=== PATIENT | female | born 1975 | race American Indian/Alaskan Native ===

== ENCOUNTER 2017-09-25 01:28 | Emergency (ER) | payer MEDICARE ==
[2017-09-25] MEDS ORDERED: DILAUDID IV ONE ×2 (02:48→04:46)
--- NOTE | 2017-09-25 02:50 | Emergency Department Report ---
HPI - General Chief Complaint: Fall Time Seen by Provider: 09/25/17 02:36 - HPI HPI: 41-year-old female presents to the emergency department via EMS with complaint of right knee pain after she accidentally slipped in the bathroom and fell onto that right knee. The patient had a total knee replacement done last week by Dr. Liu at [facility]. This is her third surgery done to that affected right knee. She has pain to the knee, some swelling and she says it feels warm. She did not take anything for her symptoms prior to presentation. She denies any other significant past medical history. Her primary care physician is a Dr. Mendenhall. ED Past Medical Hx - Past Medical History Previous Medical History?: No - Surgical History Hx Appendectomy: Yes Additional Surgical History: CASTRIC BYPASS 2004, ORAL SURGERY, PPR, SUPERPUBIC - Social History Smoking Status: Current Every Day Smoker Substance Use Type: None - Medications Home Medications: Home Medications Medication Instructions Recorded Confirmed Last Taken Type oxyCODONE /ACETAMINOPHEN [Percocet 1 tab PO Q6HR PRN #10 tablet 09/25/17 Unknown Rx 5/325] ED Review of Systems ROS: Stated complaint: GLF Other details as noted in HPI Comment: All other systems reviewed and negative Constitutional: denies: chills, fever Eyes: denies: eye pain, eye discharge, vision change ENT: denies: ear pain, throat pain Respiratory: denies: cough, shortness of breath, wheezing Cardiovascular: denies: chest pain, palpitations Gastrointestinal: denies: abdominal pain, nausea, diarrhea Genitourinary: denies: urgency, dysuria, discharge Musculoskeletal: joint swelling, arthralgia. denies: back pain Skin: denies: rash, lesions Neurological: denies: headache, weakness, paresthesias Physical Exam - Physical Exam Physical Exam: GENERAL: The patient is well-developed well-nourished. HENT: Normocephalic. Atraumatic. Patient has moist mucous membranes. EYES: Extraocular motions are intact. NECK: Supple. Trachea is midline. CHEST/LUNGS: Clear to auscultation. There is no respiratory distress noted. HEART/CARDIOVASCULAR: Regular. There is no tachycardia. There is no murmur. ABDOMEN: Abdomen is soft, nontender. Patient has normal bowel sounds. There is no abdominal distention. SKIN: Skin is warm and dry. There is some mild nonpitting swelling to the anterior right knee. It is slightly warm to touch but there is no erythema or any signs of any fluctuance. NEURO: The patient is awake, alert, and oriented. The patient is cooperative. The patient has no focal neurologic deficits. The patient has normal speech. MUSCULOSKELETAL: There is tenderness palpation to the anterior right knee. She has decreased range of motion of the right lower extremity at the knee secondary to her discomfort and recent surgery. ED Medical Decision Making - Lab Data Result diagrams: 09/25/17 03:18 09/25/17 03:18 - Radiology Data Radiology results: report reviewed PROCEDURE: XR KNEE 3V RT TECHNIQUE: RIGHT knee radiographs, AP, lateral and oblique views. CPT 45069 HISTORY: POSSIBLE FX COMPARISON: No prior studies are available for comparison. FINDINGS: Fracture (s) and/or Dislocation(s): None . Alignment: Normal . Joint space(s): Mild narrowing of the joint spaces. There is been previous surgery at the patellofemoral joint.. Soft tissues: Mild soft tissue swelling over the anterior knee. Bone mineralization: Normal . Foreign bodies: None . IMPRESSION: Mild arthritis. Mild soft tissue swelling over the anterior knee. No acute fracture or dislocation.. Transcribed By: [facility] Dictated By: SHELBIE FOX MD Electronically Authenticated By: SHELBIE FOX MD Signed Date/Time: 09/25/17 0253 - Medical Decision Making Patient accidentally slipped and fell onto her recently surgically repaired right knee when she had a knee replacement 1 week ago. She presents with increased pain and some swelling. X-ray does not show any fracture, dislocation or any other acute process other than some mild soft tissue swelling. Patient was given some pain control in the emergency department. I spoke with the patient's orthopedic surgeon, Dr. Liu, who listened to the presentation and the x-rays done and agrees with the plan for going back into the knee immobilizer and follow-up with him in the office on Wednesday. Patient will use some rest, ice, elevation and she has been given a prescription for a small amount of pain medication. She will remain in the knee immobilizer and will follow up with orthopedist. She will return to the ER with any worsening of her symptoms or any acute distress. - Differential Diagnosis fracture, contusion, sprain, strain, dislocation Critical Care Time: No Critical care attestation.: If time is entered above; I have spent that time in minutes in the direct care of this critically ill patient, excluding procedure time. ED Disposition Clinical Impression: Swelling of right knee joint Right knee pain Qualifiers: Chronicity: acute Qualified Code(s): M25.561 - Pain in right knee Contusion, knee Qualifiers: Encounter type: initial encounter Laterality: right Qualified Code(s): S80.01XA - Contusion of right knee, initial encounter Disposition: TO HOME OR SELFCARE Is pt being admited?: No Condition: Stable Instructions: Knee Pain (ED) Additional Instructions: Please follow-up with your orthopedist on Wednesday. Return to the emergency Department with any worsening of her symptoms or any acute distress. Stay in the knee immobilizer until follow-up with the orthopedist. You have been prescribed a medication that is sedating and therefore should not be taken prior to driving, working, and responsible for children and in no way should be mixed with alcohol of any quantity. Prescriptions: oxyCODONE /ACETAMINOPHEN [Percocet 5/325] 1 tab PO Q6HR PRN #10 tablet PRN Reason: Pain Referrals: IGNACIO HAMILTON DO [Other] - 3-5 Days Orthopedist, Your [Other] - 3-5 Days Time of Disposition: 05:40
--- NOTE | 2017-09-25 03:14 | XRay Report ---
FINAL REPORT PROCEDURE: XR KNEE 3V RT TECHNIQUE: RIGHT knee radiographs, AP, lateral and oblique views. CPT 68044 HISTORY: POSSIBLE FX COMPARISON: No prior studies are available for comparison. FINDINGS: Fracture (s) and/or Dislocation(s): None . Alignment: Normal . Joint space(s): Mild narrowing of the joint spaces. There is been previous surgery at the patellofemoral joint.. Soft tissues: Mild soft tissue swelling over the anterior knee. Bone mineralization: Normal . Foreign bodies: None . IMPRESSION: Mild arthritis. Mild soft tissue swelling over the anterior knee. No acute fracture or dislocation..
[2017-09-25 03:30] LABS: Basophils # (Auto) 0.1 K/mm3 (0.0-0.1); Basophils % (Auto) 1.3 % (0.0-1.8); Eosinophils # (Auto) 0.2 K/mm3 (0.0-0.4); Eosinophils % (Auto) 2.2 % (0.0-4.3); Hematocrit 34.6 % (30.3-42.9); Hemoglobin 11.2 gm/dl (10.1-14.3); Lymphocytes # (Auto) 2.4 K/mm3 (1.2-5.4); Lymphocytes % (Auto) 24.7 % (13.4-35.0); Mean Corpuscular HGB Conc 32 % (30-34); Mean Corpuscular Hemoglobin 27 pg (28-32); Mean Corpuscular Volume 83 fl (79-97); Monocytes # (Auto) 0.5 K/mm3 (0.0-0.8); Monocytes % (Auto) 5.3 % (0.0-7.3); Platelet Count 508 K/mm3 (140-440); Red Blood Count 4.16 M/mm3 (3.65-5.03); Red Cell Distribution Width 17.9 % (13.2-15.2)
[2017-09-25 03:45] LABS: BUN/Creatinine Ratio 12; Blood Urea Nitrogen 7 mg/dL (7-17); Hemolysis Index 0
[2017-09-25 05:36] VITALS: BP 140/93
== END 2017-09-25 06:15 | disposition home or self-care (01) ==
LOC: ED 01:28
DX: S80.01XA Contusion of right knee, initial encounter (principal); M25.461 Effusion, right knee; M25.561 Pain in right knee; F17.200 Nicotine dependence, unspecified, uncomplicated; Z90.49 Acquired absence of other specified parts of digestive tract; W18.30XA Fall on same level, unspecified, initial encounter; Y93.89 Activity, other specified; Y99.8 Other external cause status; Y92.091 Bathroom in other non-institutional residence as the place of occurrence of the external cause
CPT/HCPCS: 36415; 73562; 80048; 85025; 96374; 96376; 99284; J1170

== ENCOUNTER 2018-08-24 16:51 | Emergency (ER) | payer MEDICARE | END 2018-08-24 17:23 | LOC: ED 16:51 | DX: M25.561 Pain in right knee (principal); Z53.21 Procedure and treatment not carried out due to patient leaving prior to being seen by health care provider ==